=== PATIENT | male | born 1990 | race Caucasian/White ===

== ENCOUNTER 2018-04-13 02:36 | Emergency (ER) | payer SELFPAY ==
[~2018-04-13] VITALS: Ht 175.3 cm; Wt 82.5 kg
[2018-04-13 02:38] VITALS: BP 123/75
[2018-04-13] MEDS ORDERED: KETOROLAC 30 MG/1 ML ONE (02:58)
[2018-04-13] MEDS ORDERED: METHOCARBAMOL 750 MG TABLET ONE (02:58)
[2018-04-13] MEDS ORDERED: KETOROLAC 30 MG/1 ML IM ONE (03:00)
[2018-04-13] MEDS ORDERED: METHOCARBAMOL 750 MG TABLET PO ONE (03:00)
[2018-04-13] MEDS ORDERED: HYDROcodone/APAP 5/325 TABLET PO ONE (04:00)
[2018-04-13] MEDS ORDERED: HYDROcodone/APAP 5/325 TABLET ONE (04:10)
== END 2018-04-13 04:20 ==
LOC: ED 03:20
DX: S39.012A Strain of muscle, fascia and tendon of lower back, initial encounter (principal); X58.XXXA Exposure to other specified factors, initial encounter; Y93.89 Activity, other specified; Y92.89 Other specified places as the place of occurrence of the external cause; Y99.8 Other external cause status
CPT/HCPCS: 96372; 99283; J1885